=== PATIENT | male | born 1955 | race Caucasian/White ===

== ENCOUNTER 2020-06-27 07:22 | Emergency (ER) | payer BC ==
[~2020-06-27] VITALS: Ht 170.2 cm; Wt 82.0 kg
[2020-06-27 08:57] LABS: HEMATOCRIT. 37.7 % (42.0-52.0); HEMOGLOBIN. 12.4 g/dL (14.0-18.0); MEAN CORPUSCULAR HEMOGLOBIN 27.3 pg (28.0-32.0); MEAN CORPUSCULAR VOLUME 82.8 fL (80.0-94.0); MEAN PLATELET VOLUME 8.8 fl (7.4-10.4); PLATELET 306 x1000/uL (130-400); RED BLOOD CELL COUNT 4.55 mill/uL (4.7-6.1); RED CELL DISTRIBUTION WIDTH 13.8 % (11.6-14.6)
[2020-06-27 09:07] LABS: CHLORIDE 98 mEq/L (98-107)
[2020-06-27 09:09] LABS: INR 1.1; PROTHROMBIN TIME 11.3 sec (9.6-11.0)
[2020-06-27 09:33] LABS: PLATELET ESTIMATE NORMAL
[2020-06-27] MEDS ORDERED: AZITHROMYCIN 500 MG in DEXT 5% WATER 250 ML IV ONE (09:45)
[2020-06-27] MEDS ORDERED: DEXAMETHASONE 10 MG/ML VIAL IV ONE (09:45)
[2020-06-27] MEDS ORDERED: CEFTRIAXONE 1 G PREMIX 50 ML IV ONE (09:45)
[2020-06-27] MEDS ORDERED: SODIUM CHLORIDE 0.9% 1,000 ML IV ONE (09:45)
[2020-06-27 09:53] LABS: BG BASE EXCESS -4.7 mmol/L (-2.0-2.0); BG DEOXYHEMOGLOBIN 17.5 % (0.0-5.0); BG FRACTION INSPIRED OXYGEN 100; BG HCO3 ACT 18.6 mmol/L (22.0-26.0); BG METHEMOGLOBIN 0.2 % (0.0-1.5); BG OXYGEN SATURATION 82.3 % (92.0-98.5); BG OXYHEMOGLOBIN 81.3 % (94.0-97.0); BG PCO2 29.6 mmHg (35.0-45.0); BG PH 7.417 (7.350-7.450); BG PO2 44.8 mmHg (75.0-100.0); BG SAMPLE SITE RIGHT RADIAL; BG TOTAL HEMOGLOBIN 13.1 g/dL (12.0-18.0); BG VENT MODE MASK - NRB
[2020-06-27] MEDS ORDERED: EPINEPHRINE 0.1MG/ML (1:10,000) 10ML SYR ONE (10:00)
[2020-06-27] MEDS ORDERED: ATROPINE SULFATE 1MG/10ML SYR ONE (10:00)
[2020-06-27] MEDS ORDERED: SODIUM BICARBONATE 8.4% 1 MEQ/ML 50ML SYR IV ONE (10:00)
[2020-06-27 10:25] LABS: CLARITY URINE CLEAR (CLEAR); COLOR URINE YELLOW (YELLOW); KETONES URINE 1+ (NEGATIVE); LEUKOCYTE ESTERASE URINE NEGATIVE (NEGATIVE); NITRITE URINE NEGATIVE (NEGATIVE); OCCULT BLOOD URINE 2+ (NEGATIVE); PROTEIN URINE 2+ (NEGATIVE); SPECIFIC GRAVITY URINE 1.034 (1.005-1.030); UROBILINOGEN URINE 0.2 E.U./dL (0.2-1.0)
[2020-06-27] MEDS ORDERED: ASPIRIN 325MG EC TABLET PO ONE (11:15)
[2020-06-27 12:07] VITALS: BP 0/0
== END 2020-06-27 12:07 | disposition expired ==
LOC: ER 07:51 → EDBEDREQSVC 11:08 → EDBEDREQ 11:08 → ER 12:07 → CANBEDREQ 15:04
DX: R09.02 Hypoxemia (principal); R06.03 Acute respiratory distress; E11.9 Type 2 diabetes mellitus without complications; I10 Essential (primary) hypertension
CPT/HCPCS: 36415; 36600; 71045; 80053; 81003; 82375; 82805; 84484; 85025; 85610; 87040; 93005; 96365; 96375; 99285; J0456; J0461; J0696; J1100; J3490; J7030; J7060